=== PATIENT | male | born 1965 | race Caucasian/White ===

== ENCOUNTER → 2017-07-31 | Day surgery (SDC) | payer OTHER ==
--- NOTE | 2017-07-30 14:54 | History & Physical Pre-Op ---
General Information and HPI History of Present Illness: patient presents for evaluation of new left inguinal hernia. he noted a "pop" sensation followed by swelling in the groin a few weeks ago. Minimal pain. no n/ v/change to bowel or bladder habits. Allergies/Medications Allergies: Coded Allergies: NO KNOWN ALLERGIES (07/26/17) Home Med list Fluoxetine HCl (Prozac) 10 MG CAPSULE 1 CAP PO DAILY MENTAL HEALTH (Reported) Gluc 2KCL/Chondr/Joe Hy/Hy AC (Glucosamine & Chondroitin Cap) (Unknown Strength ) CAPSULE (Unknown Dose) PO DAILY SUPPLEMENT (Reported) [place]-3 Fatty Acids/Fish Oil (Fish Oil 1,000 MG Softgel) (Unknown Strength) CAPSULE (Unknown Dose) PO DAILY SUPPLEMENT (Reported) Oxcarbazepine 150 MG TABLET 3 TAB PO QAM MENTAL HEALTH (Reported) Oxcarbazepine 150 MG TABLET 1 TAB PO QPM MENTAL HEALTH (Reported) Past History Medical History Renal: nephrolithiasis Psychiatric: anxiety Surgical History Pertinent Surgical History: none Past Family/Social History Psychosocial History Smoking Status: Former Smoker ETOH Use: occasional use Review of Systems Review of Systems: Patient reports no fatigue, no fever, no night sweats, no significant weight gain, no significant weight loss, and no exercise intolerance. He reports no abnormal moles, no jaundice, no hives, no eczema, and no rashes. He reports no swollen glands and no neck stiffness. He reports no cough, no wheezing, no shortness of breath, and no coughing up blood. He reports no chest pain, no arm pain on exertion, no shortness of breath when walking, no shortness of breath when lying down, no palpitations, and no known heart murmur. He reports normal appetite, no abdominal pain, no vomiting, no vomiting blood, no bloating, no diarrhea, no belching, no constipation, no regurgitation, and no rectal bleeding. He reports no incontinence, no difficulty urinating, no hematuria, and no increased frequency. He reports no muscle aches, no muscle weakness, no arthralgias/joint pain, and no back pain. Exam & Diagnostic Data Last 24 Hrs of Vital Signs/I&O Intake & Output 07/30 1600 07/30 0800 07/30 0000 Intake Total Output Total Balance Patient 165 lb Weight Physical Exam: Patient is a 51-year-old male. Constitutional: General Appearance: healthy-appearing, well-nourished, and well- developed. Level of Distress: no acute distress. Ambulation: ambulating normally. Head: Head: normocephalic and atraumatic. Neck: Neck: supple, trachea midline, no masses, and full range of motion. Cardiovascular: Heart Auscultation: normal S1 and S2; no murmurs, rubs, or gallops; and regular rate and rhythm. Lungs: Respiratory effort: no dyspnea. Percussion: no dullness, flatness, or hyperresonance. Auscultation: no wheezing, rales/crackles, or rhonchi and breath sounds normal, good air movement, and clear to auscultation. Back: Thoracolumbar Appearance: normal curvature. Abdomen: Inspection and Palpation: no tenderness, guarding, masses, rebound tenderness, or CVA tenderness and soft and non-distended. Bowel Sounds: normal. Liver: non-tender and no hepatomegaly. Spleen: non-tender and no splenomegaly. Hernia: inguinal (reducible left, small.). Skin: Inspection and palpation: no rash, lesions, ulcer, induration, nodules, jaundice, or abnormal nevi and good turgor. Musculoskeletal:: Extremities: no cyanosis, edema, varicosities, or palpable cord. Motor Strength and Tone: normal tone and motor strength. Joints, Bones, and Muscles: no contractures, malalignment, tenderness, or bony abnormalities and normal movement of all extremities. Assessment/Plan Assessment/Plan: Left inguinal hernia - recommend laparoscopic repair. K40.90: Unilateral inguinal hernia, without obstruction or gangrene, not specified as recurrent Discussion Notes Discussed laparoscopic preperitoneal hernia repair with mesh, the need for general anesthesia to perform it and the outpatient nature of surgery. Discussed the outcomes of surgery including 3-5% recurrence rate, 1% infection and bleeding risk. Discussed the permanent nature of mesh for repair and need for removal if infection occurs. Discussed the small risk of testicular vessel injury and vas deferens injury (males). As Ranked By This Provider Problem List: 1. Left inguinal hernia
[~2017-07-31] VITALS: Ht 152.4 cm; Wt 74.8 kg
[~2017-07-31] MED LIST: FISH OIL 1,0001 EAC4 PO; GLUCOSAMINE &1 EAC1 PO; OXCARBAZEPINE150 M1 PO; PROZAC10 M1 PO
--- NOTE | 2017-07-31 14:11 | Operative Report ---
Operative/Inv Procedure Report Surgery Date: 07/31/17 Name of Procedure: Laparoscopic left inguinal hernia repair Pre-Operative Diagnosis: Left inguinal hernia Post-Operative Diagnosis: Same Estimated Blood Loss: scant Surgeon/Heel Finisher: Avni FARLEY,Darrin Andrews/Holland KELLY Anesthesia: general endotracheal tube Implants: Parietex mesh Drains: None Specimens: None Operative Indication: 51-year-old male presents for elective repair of his hernia Operative/Procedure Note Note: After consent patient is brought to the operating room laid supine. General anesthesia was obtained and the abdomen was prepped and draped. Skin was anesthetized with local anesthesia and a transverse infraumbilical incision made sharply. We identified the rectus fascia and incised transversely. Stay sutures were placed. Rectus muscle was retracted laterally and a dissecting balloon placed posterior to it. It was inflated under direct vision the camera and replaced with a blunt Adan port. Gas was instilled. 2, 5 mm ports were placed in the infraumbilical midline after local anesthesia was instilled and under direct vision and camera. Began our dissection at the pubis and delineated the symphysis. Peter's ligament was identified and cleared on the left side. Then dissected laterally and developed the iliopubic tract. The cord structures were circumferentially dissected. There is a moderate sized indirect sac which was dissected free from the cord structures and reflected medially. Once the dissection was completed a left -sided piece of Parietex mesh was placed in the cavity. It was placed around the cord structures re-create the internal ring and cover the femoral and direct spaces as well. Gas was allowed to escape on maintaining proper orientation of the mesh. The fascia was closed with 0 Vicryl suture. Skin incisions closed with 4-0 Vicryl. Steri-Strips and sterile dressing applied. Sponge and needle counts are correct. Findings: Indirect CC: Jeffery FARLEY,Eric Gonsales
== END ==
LOC: STS 02:30
DX: K40.90 Unilateral inguinal hernia, without obstruction or gangrene, not specified as recurrent (principal)
CPT/HCPCS: C1781; J0690; J2250